=== PATIENT | female | born 1970 | race Caucasian/White ===

== ENCOUNTER 2019-11-28 22:41 | Emergency (ER) | payer OTHER ==
[~2019-11-28] VITALS: Ht 160 cm; Wt 73.0 kg
[~2019-11-28 22:41] MED LIST: CARCD240 PO; PRO40 PO
[2019-11-28 22:46] VITALS: Ht 160 cm; Wt 73.0 kg
[2019-11-28 23:54] VITALS: BP 112/71
== END 2019-11-28 23:54 | disposition home or self-care (01) ==
LOC: ED 22:41
DX: H65.91 Unspecified nonsuppurative otitis media, right ear (principal); I10 Essential (primary) hypertension; J32.9 Chronic sinusitis, unspecified; Z98.890 Other specified postprocedural states; Z90.49 Acquired absence of other specified parts of digestive tract; Z91.018 Allergy to other foods